=== PATIENT | female | born 1965 ===

== ENCOUNTER 2017-02-21 19:38 | Emergency (ER) | payer SELFPAY ==
[2017-02-21 19:43] VITALS: BMI 30.5
[2017-02-21 19:46] VITALS: TEMP 98
[2017-02-21] MEDS ORDERED: Apap-Butalbital-Caffeine 325-50-40mg Tab PO ONE (20:17)
--- NOTE | 2017-02-21 20:38 | ED PDOC ---
Arrival/HPI - General Chief Complaint: Headache Time Seen by Provider: 02/21/17 19:45 Historian: Patient, Parent - History of Present Illness Narrative History of Present Illness (Text): 02/21/17 20:35 51-year-old female who presents with headache that started this morning at approximately 10 AM she states this is a severe headache worse than her usual headaches but she has not taken anything for this headache. She states the pain came on slowly while she was washing her dishes it is mostly posterior in the back of her head. There is no history of aneurysms in the family. Some slight dizziness and nausea with it. She does have a history of osteoarthritic arthritis of the spine. She also complains of "pins and needles in her legs and bilateral hip pain she denies any fever or chills. He also complains of dizziness she commenced mild congestion nonproductive cough she denies any history of hypertension or diabetes she does have a history of hypercholesterolemia. She denies any shortness of breath or chest pain. No nausea or vomiting. No history of migraines. She denies any photophobia or fevers or chills. headache is posterior in nature 02/21/17 20:38 02/21/17 23:29 Time/Duration: 4-6 hours Symptom Onset: Sudden Symptom Course: Unchanged Activities at Onset: Rest Context: Home Past Medical History - Provider Review Nursing Documentation Reviewed: Yes - Travel History Have you recently traveled outside [place] w/in the past 3 mons?: No - Infectious Disease Hx of Infectious Diseases: None - Past Medical History Past Medical History: Non-Contributing - Psychiatric Hx Substance Use: No - Surgical History Other/Comment: one F tube removed. ectopic - Anesthesia Hx Anesthesia: Yes Hx Anesthesia Reactions: No Family/Social History - Physician Review Nursing Documentation Reviewed: Yes Family/Social History: No Known Family HX Smoking Status: Never Smoked Hx Alcohol Use: No Hx Substance Use: No Allergies/Home Meds Allergies/Adverse Reactions: Allergies No Known Allergies Allergy (Verified 02/21/17 19:43) Review of Systems - Physician Review All systems were reviewed & negative as marked: Yes - Review of Systems Constitutional: absent: Fevers, Night Sweats Eyes: absent: Vision Changes, Photophobia Respiratory: Cough. absent: SOB, Sputum, Wheezing Cardiovascular: Normal. absent: Chest Pain Gastrointestinal: Normal. absent: Abdominal Pain Musculoskeletal: Arthralgias, Neck Pain, Other (hip pain ) Neurological: Headache, Dizziness. absent: Speech Changes, Disequilibrium Physical Exam Vital Signs Reviewed: Yes Vital Signs Temp Pulse Resp BP Pulse Ox 02/21/17 19:46 98.0 F 74 17 111/79 98 Temperature: Afebrile Blood Pressure: Normal Pulse: Regular Respiratory Rate: Normal Appearance: Positive for: Well-Appearing Pain Distress: None Mental Status: Positive for: Alert and Oriented X 3 - Systems Exam Head: Present: Atraumatic Pupils: Present: PERRL Extroacular Muscles: Present: EOMI Conjunctiva: Present: Normal Ears: Present: Normal Mouth: Present: Moist Mucous Membranes Nose (External): Present: Atraumatic Nose (Internal): Present: Normal Inspection Neck: Present: Normal Range of Motion, Paraspinal Tenderness Respiratory/Chest: Present: Clear to Auscultation, Good Air Exchange Cardiovascular: Present: Regular Rate and Rhythm, Murmurs Abdomen: Present: Normal Bowel Sounds. No: Tenderness Back: Present: Normal Inspection Upper Extremity: Present: Normal Inspection Lower Extremity: Present: Normal Inspection Neurological: Present: GCS=15, Speech Normal, Motor Func Grossly Intact Skin: Present: Warm, Dry Lymphatic: No: Cervical Adenopathy Psychiatric: Present: Alert, Oriented x 3 Medical Decision Making ED Course and Treatment: 02/21/17 21:44 Impression: A 51 year old female with headache and dizziness. Plan: -- EKG -- CT head -- Decadron, Fioricet -- labs -- Reassess and disposition Progress Notes: CT Head Without Intravenous Contrast FINDINGS: Brain: No acute intracranial hemorrhage. No significant white matter disease. No edema. Ventricles: No significant ventriculomegaly. Bones: No acute displaced fracture. Sinuses: Unremarkable as visualized. No acute sinusitis. Mastoid air cells: Unremarkable as visualized. No mastoid effusion. IMPRESSION: No acute intracranial hemorrhage, or suspicious mass effect. Dictated and Authenticated by: Whitney Wakefield MD 02/21/2017 11:25 PM Eastern Time ([place] & [place]) 02/21/17 23:39 Doubt intracranial hemorrhage due to slow onset no family history no risk factors no hypertension. Doubt meningitis no fevers. Possibly vertigo Neurologically intact she is also complaining of paresthesias and bilateral sciatica no other neurologic weakness she has good lower externally strength likely this is due to lumbar radiculopathy advised to follow-up with [facility]. She has no other focal weakness - Lab Interpretations Lab Results: 02/21/17 22:12 02/21/17 22:12 Lab Results 02/21/17 22:12: Sodium 139, Potassium 3.7, Chloride 103, Carbon Dioxide 29, Anion Gap 11, BUN 13, Creatinine 0.5 L, Est GFR ( Amer) > 60, Est GFR ( Non-Af Amer) > 60, Random Glucose 102, Calcium 9.2, Magnesium 2.1 02/21/17 22:12: WBC 8.1 D, RBC 4.00, Hgb 11.5 L, Hct 34.0 L, MCV 85.0, MCH 28.8 , MCHC 33.8, RDW 13.8, Plt Count 216, MPV 10.3, Gran % 70.6 H, Lymph % (Auto) 24.9, Izard % (Auto) 3.3, Eos % (Auto) 1.0 L, Baso % (Auto) 0.2, Gran # 5.69, Lymph # 2.0, Izard # 0.3, Eos # 0.1, Baso # 0.02 I have reviewed the lab results: Yes (mild normocytic anemia) - RAD Interpretation Radiology Orders: 02/21/17 20:16 HEAD W/O CONTRAST [CT] Stat - EKG Interpretation EKG Interpretation (Text): 02/21/17 23:30 Normal sinus rhythm at 70 bpm normal axis and QTC is 455 ms mildly prolonged QRS and IL interval are normal with 92 ms and 170 ms respectively. Specifically inversion in lead 3 otherwise normal EKG Interpreted by ED Physician: Yes Type: 12 lead EKG - Medication Orders Current Medication Orders: Discontinued Medications Acetaminophen (Tylenol 325mg Tab) 650 mg PO STAT STA Stop: 02/21/17 23:24 Acetaminophen/Butalbital/Caffeine (Fioricet) 1 tab PO ONCE ONE Stop: 02/21/17 20:18 Last Admin: 02/21/17 20:27 Dose: 1 tab MAR Pain Assessment Document 02/21/17 20:27 EKEOO (Rec: 02/21/17 20:27 EKEOO [id number]) Pain Reassessment Is this a pain reassessment? No Sleep Is patient sleeping during reassessment? 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 Ulcer: No History Surgical Site Infection Following: None - Disposition Have Diagnosis and Disposition been Completed?: Yes Diagnosis: Headache Disposition: HOME/ ROUTINE Disposition Time: 23:31 Patient Plan: Discharge Patient Problems: Current Active Problems Problem Status Onset Headache Acute Condition: IMPROVED Discharge Instructions (ExitCare): Acute Headache (DC), Peripheral Neuropathy ( ED), Cervical Radiculopathy (ED) Print Language: UPPER SORBIAN Prescriptions: Codeine/Butalbital/ASA/Caffein [Fiorinal with Codeine #3 Cap] 1 each PO Q6 PRN # 14 capsule PRN Reason: Headache Referrals: PCP,NO [Primary Care Provider] - Follow up with primary [facility] [place] - Follow up with primary (please followup in 1 week for headaches and about tingling in legs, which may be due to lumbar radiculopathy/sciatica) Forms: [employer] (Khmer)
[2017-02-21 22:23] LABS: BASO # 0.02 K/mm3 (0.0-2.0); BASO % 0.2 % (0.0-3.0); EOS # 0.1 (0.0-0.7); GRAN # 5.69 (1.4-6.5); GRAN % 70.6 % (50.0-68.0); LYMPH % 24.9 % (22.0-35.0); MEAN CORPUSCULAR HEMOGLOBIN 28.8 pg (25.0-35.0); MEAN CORPUSCULAR HGB CONC 33.8 g/dl (31.0-37.0); MEAN PLATELET VOLUME 10.3 fl (7.0-11.0); MONO # 0.3 (0.1-0.6); MONO % 3.3 % (1.0-6.0); RED CELL DISTRIBUTION WIDTH 13.8 % (11.5-14.5); WHITE BLOOD COUNT 8.1 10^3/ul (4.5-11.0)
[2017-02-21 22:26] LABS: BLOOD UREA NITROGEN 13 mg/dL (7-21); CALCIUM 9.2 mg/dL (8.4-10.5); CARBON DIOXIDE 29 mmol/L (21-33); CHLORIDE 103 mmol/L (98-107); GFR AFRICAN-AMERICAN > 60; GLUCOSE,RANDOM 102 mg/dL (70-110); MAGNESIUM 2.1 mg/dL (1.7-2.2); POTASSIUM 3.7 mmol/L (3.6-5.0); SODIUM 139 mmol/L (132-148)
[2017-02-21] MEDS ORDERED: Sodium Chloride 0.9% 1,000 ML IV STA (22:28)
[2017-02-21] MEDS ORDERED: Magnesium Sulfate 1 gm in D5W 1 GM/100 ML BAG IVPB ONE (22:28)
--- NOTE | 2017-02-21 23:25 | CT ---
EXAM: CT Head Without Intravenous Contrast CLINICAL HISTORY: 51 years old, female; Pain; Headache; Headache not specified TECHNIQUE: Axial computed tomography images of the head/brain without intravenous contrast. All CT scans at this facility use one or more dose reduction techniques, viz.: automated exposure control; ma/kV adjustment per patient size (including targeted exams where dose is matched to indication; i.e. head); or iterative reconstruction technique. COMPARISON: No relevant prior studies available. FINDINGS: Brain: No acute intracranial hemorrhage. No significant white matter disease. No edema. Ventricles: No significant ventriculomegaly. Bones: No acute displaced fracture. Sinuses: Unremarkable as visualized. No acute sinusitis. Mastoid air cells: Unremarkable as visualized. No mastoid effusion. IMPRESSION: No acute intracranial hemorrhage, or suspicious mass effect.
[2017-02-22 00:19] VITALS: BP 138/86; PULSE 73; RESP 18; O2SAT 99
--- NOTE | 2017-02-22 21:37 | CARD ---
APPROVED REPORT EKG Measurement Heart [id number] <Conclusion> Normal sinus rhythm Incomplete right bundle branch block Cannot rule out Anterior infarct, age undetermined Abnormal ECG
== END 2017-02-22 00:19 | disposition home or self-care (01) ==
LOC: ED 19:38
DX: R51 Headache (principal)
CPT/HCPCS: 70450; 80048; 83735; 85025; 93005; 96372; 99285; J1100

== ENCOUNTER 2018-10-04 07:09 | Outpatient (CLI) | payer SELFPAY | END 2018-10-04 07:10 | disposition home or self-care (01) | LOC: LAB 07:09 ==